=== PATIENT | female | born 1950 | race Caucasian/White ===

== ENCOUNTER → 2024-05-26 13:40 | Outpatient (BNVA) | payer MEDICARE, SELFPAY | PROVIDERS: Family Provider Family Medicine; PCP Family Medicine; Visit Provider Nurse Practitioner Family | DX: M25.871 Other specified joint disorders, right ankle and foot (principal); S90.00XA Contusion of unspecified ankle, initial encounter; X58.XXXA Exposure to other specified factors, initial encounter | CPT/HCPCS: 73610 ==

== ENCOUNTER 2025-07-21 08:36 | Emergency (ER) | payer MEDICARE, SELFPAY ==
--- OUTSIDE RECORDS SUMMARY | 2025-07-21 08:52 | XMS_ITS | Clinical Summary ---
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 Active ISOSORBIDE DINITRATE 30 mg Oral Tab Take 30 mg by mouth 2 times daily. Active CELEBREX 200 mg Oral Cap Take 200 mg by mouth daily. Active LISINOPRIL 40 mg Oral Tab Take 40 mg by mouth 2 times daily. Active VYTORIN 10/40 PO Take by mouth daily. Active HYDROCHLOROTHI AZIDE 25 mg Oral Tab Take 25 mg by mouth 1 time daily as needed. Active PLAVIX 75 mg Oral Tab Take 75 mg by mouth daily. Active ASPIRIN 81 mg Oral Tab Take 81 mg by mouth daily. Active RANITIDINE HCL 300 mg Oral Tab Take 300 mg by mouth 1 time daily as needed for Indigestion. Active NITROSTAT SL Place under tongue 1 time daily as needed. Active TOPROL XL 50 mg Oral Tb24 Take 50 mg by mouth daily. Active HYDROCODONE-AC ETAMINOPHEN 7.5-500 mg Oral Tab Take 1 Tab by mouth 1 time daily as needed for Pain. Active PROMETHAZINE 25 mg Oral Tab Take 25 mg by mouth 1 time daily as needed for Nausea. Active LANTUS SC Inject 20 Units by subcutaneous injection daily. Active diazepam (VALIUM) 10 mg Oral TabIndications :Unspecified dental caries Take 1 Tab by mouth see administration instructions. Take one tablet the night prior to surgery and take one tablet one hour prior to procedure. 2 Tab 0 9 Active chlorhexidine gluconate (PERIDEX) 0.12 % MM MwshIndication s:Unspecified dental caries 15 mL by Mouth/Throat route 2 times daily. 1 Bottle 0 9 Active HYDROCODONE BIT/ACETAMINOP HEN (HYDROCODONE-A CETAMINOPHEN) 5-500 mg Oral TabIndications :Unspecified dental caries Take 1 Tab by mouth every 4 hours as needed for Pain. 30 Tab 0 9 Active Active Problems Problem Noted Date Diagnosed Date Dental caries 01/30/2009 Social History Tobacco Use Types Packs/Day Years Used Date Smoking Tobacco: Never Alcohol Use Standard Drinks/Week Comments No 0 (1 standard drink = 0.6 oz pur e alcohol) Comments No Sex and Gender Information Value Date Recorded Sex Assigned at Not on file Legal Sex Female 7:16 AM [employer] Gender Identity Not on file Sexual Orientation Not on file Last Filed Vital Signs Vital Sign Reading Time Taken Comments Blood Pressure 141/93 01/30/2009 8:53 AM CDT Pulse 76 01/30/2009 8:53 AM CDT Temperature - - Respiratory Rate - - Oxygen Saturation 99% 01/30/2009 8:53 AM CDT Inhaled Oxygen Concentration - - Weight 83 kg (183 lb) 01/30/2009 8:53 AM CDT Height 165.1 cm (5' 5 ) 01/30/2009 8:53 AM CDT Body Mass Index 30.45 01/30/2009 8:53 AM CDT Plan of Treatment Health Maintenance Due Date Last Done Comments DTAP/TDAP/TD VACCINES (1 - Tdap) 1968 COLORECTAL SCREENING 1994 Colorectal Cancer Screening 1994 FIT-DNA Q 3 years 1994 FIT/FOBT Q 1 year 1994 Flex Sig/CT Colonography Q 5 years 1994 PNEUMOCOCCAL VACCINE 50+ YEARS (1 of 1 - PCV) 09/27/19 99 ZOSTER VACCINE (1 of 2) 1999 OSTEOPOROSIS SCREENING 2014 RSV VACCINE (60+ or ) (1 - 1-dose 75+ series) 2024 INFLUENZA VACCINE (#1) 2025 Insurance MEDICARE PART A AND B [facility]
--- NOTE | 2025-07-21 08:53 | XR_ITS ---
WS: [id number] Left wrist, 3 views, 07/21/2025 Clinical Data: Trauma Comparison: None. Findings: There is a comminuted impacted fracture of the distal left radius. Carpal bones are intact. There is soft tissue swelling surrounding the wrist. There is vascular calcification. XR/XR wrist LT min 3V* [id number] Impression: Comminuted impacted fracture distal left radius.
--- NOTE | 2025-07-21 08:53 | CT_ITS ---
WS: [id number] CT CERVICAL TRAUMA TECHNIQUE: Noncontrast CT of the cervical spine with coronal and sagittal reformatted images. CLINICAL INFORMATION: Trauma COMPARISON: None. DLP: 1358.[address] scans at [facility] use at least one of these dose optimization techniques: automated exposure control; mA and/or kV adjustment per patient size (includes targeted exams where dose is matched to clinical indication); or iterative reconstruction. FINDINGS: Straightening of the normal cervical lordosis. Moderate spondylitic changes. Disc narrowing worse at C4-C5 C5-C6 and C6-C7. Mild central canal stenosis C5-6. Normal craniocervical junction. Normal C1-C2 articulation. Dens is normal in appearance. Normal occipital condyles. No high-grade spinal canal narrowing. Normal C1 ring. No evidence of acute fracture or dislocation. Normal prevertebral soft tissues. Vascular calcification. Mastoids air cells are well aerated. CT/CT cervical spin wo con* [id number] IMPRESSION: No evidence of acute fracture or dislocation.
--- NOTE | 2025-07-21 08:54 | CT_ITS ---
WS: [id number] CT HEAD TECHNIQUE: Noncontrast CT of the head obtained from the skullbase to the vertex. CLINICAL INFORMATION: Trauma COMPARISON: None. DLP: 1358.[address] scans at [facility] use at least one of these dose optimization techniques: automated exposure control; mA and/or kV adjustment per patient size (includes targeted exams where dose is matched to clinical indication); or iterative reconstruction. FINDINGS: No evidence of intracranial hemorrhage or mass effect. Ventricular system and basal cisterns are patent. Moderate small vessel changes with moderate parenchymal volume loss. No extra-axial fluid collections. Tiny chronic lacunar infarcts LEFT caudate and posterior limb RIGHT internal capsule. Vascular calcification. Paranasal sinuses and mastoid air cells are well aerated. .Normal visualized soft tissues. CT/CT head wo con* [id number] IMPRESSION: 1. No evidence of intracranial hemorrhage or mass effect. 2. No acute intracranial findings.
[2025-07-21 09:09] VITALS: BP 141/71; PULSE 63; RESP 16; TEMP 36.3; O2SAT 98
--- NOTE | 2025-07-21 09:24 | CT_ITS ---
WS: [id number] CT LUMBAR SPINE TECHNIQUE: Noncontrast CT of the lumbar spine with coronal and sagittal reformatted images. CLINICAL INFORMATION: TRAUMA COMPARISON: None. DLP: 847.[address] scans at [facility] use at least one of these dose optimization techniques: automated exposure control; mA and/or kV adjustment per patient size (includes targeted exams where dose is matched to clinical indication); or iterative reconstruction. FINDINGS: Mild lumbar curve. Slight anterolisthesis L4 on L5. No acute appearing compression fractures. Splenic artery calcification. Cholecystectomy clips. Dense aortic calcification. Osteopenia. Absent LEFT kidney. L3-L4: Moderate facet arthropathy. Mild LEFT foraminal narrowing. L4-L5: Mild annular bulging. Slight narrowing of the subarticular recess bilaterally. Advanced arthropathy. L5-S1: Tiny central protrusion. Advanced facet arthropathy. CT/CT lumbar spine wo con* [id number] IMPRESSION: No acute fractures.
--- NOTE | 2025-07-21 10:00 | W.ED.FALL ---
HPI - Fall General: Chief Complaint: Fall Stated Complaint: Fall- hit back and L wrist Time Seen by Provider: 07/21/25 09:08 History of Present Illness: 74-year-old female presents emergency room she fell hit her back and hurt her left wrist last night when she was trying to help her in bed. She denies hitting her head there is no loss consciousness she is on apixaban. She denies any other injuries. Associated symptoms-after fall: Denies abdominal pain, chest pain or neck pain Related Data Home Medications ?Medication ?Instructions ?Recorded ?Confirmed amlodipine 5 mg tablet 5 mg PO DAILY 05/26/24 05/26/24 apixaban 5 mg tablet (Eliquis) 5 mg PO BID 05/26/24 05/26/24 ezetimibe 10 mg tablet 10 mg PO DAILY 05/26/24 05/26/24 famotidine 20 mg tablet 20 mg PO DAILY 05/26/24 05/26/24 hydralazine 25 mg tablet 25 mg PO TID 05/26/24 05/26/24 isosorbide dinitrate 30 mg tablet 45 mg PO BID 05/26/24 05/26/24 levothyroxine 100 mcg capsule 100 mcg PO DAILY 05/26/24 05/26/24 lisinopril 20 mg tablet 20 mg PO DAILY 05/26/24 05/26/24 metoprolol succinate 50 mg 50 mg PO BID 05/26/24 05/26/24 tablet,extended release 24 hr rosuvastatin 20 mg tablet 20 mg PO DAILY 05/26/24 05/26/24 Previous Rx's ?Medication ?Instructions ?Recorded hydrocodone 5 mg-acetaminophen 325 1 tab PO Q6H PRN pain #10 tabs 07/21/25 mg tablet Allergies Allergy/AdvReac Type Severity Reaction Status Date / Time atorvastatin Allergy Intermediate Unknown Verified 05/26/24 12:56 cefdinir Allergy Intermediate ADR-Nausea Verified 05/26/24 12:56 Iodinated Contrast Media Allergy Unknown Verified 07/21/25 09:14 Review of Systems Const: Denies: fever(s) or chills Card: Denies: chest pain Resp: Denies: dyspnea GI: Denies: abdominal pain : Denies: dysuria, urinary frequency or urinary urgency Musc: Denies: neck pain or back pain Skin/Breast: Denies: rash PFSH ED PFSH: Social History Smoking and tobacco/nicotine status: never used tobacco/nicotine Physical Exam Const: GENERAL APPEARANCE: cooperative ORIENTATION/CONSCIOUSNESS: Yes awake, Yes oriented to person, Yes oriented to place and Yes oriented to time HENMT: COMMON NORMALS: normocephalic, atraumatic and hearing grossly normal bilaterally HEAD & SCALP: normocephalic and atraumatic Resp: COMMON NORMALS: normal respiratory effort, No retractions, No use of accessory muscles and clear to auscultation bilaterally AUSCULTATION: clear to auscultation bilaterally Cardio: COMMON NORMALS: regular rate, regular rhythm and No murmurs present (Cardio) RATE: regular rate RHYTHM: regular rhythm GI: COMMON NORMALS: Soft to palpation and No hepatosplenomegaly present AUSCULTATION: Yes normoactive bowel sounds PALPATION: Yes Soft to palpation, No Tenderness to palpation present (GI), No Guarding due to palpation present (GI) and Yes No hepatosplenomegaly present Extremity: COMMON NORMALS: normal to inspection, capillary refill normal, no clubbing, cyanosis or edema, no calf tenderness and no pedal edema Neuro: SENSORIUM/ORIENTATION: Yes oriented to person, Yes oriented to place and Yes oriented to time Skin: COMMON NORMALS: no rashes or lesions noted GENERAL SKIN EXAM: no rashes or lesions noted Course Vital Signs: Vital signs: Vital Signs Temperature 97.4 F L 07/21/25 09:09 Pulse Rate 67 07/21/25 10:56 Respiratory Rate 16 07/21/25 09:09 Blood Pressure 141/71 07/21/25 10:56 Pulse Oximetry 98 07/21/25 10:56 Oxygen Delivery Me thod Room Air 07/21/25 09:09 MDM - Fall Medical Decision Making CT of her lumbar spine and head CT are unremarkable no acute findings. Impacted comminuted left distal radius fracture will refer to orthopedics Medical Records I reviewed the patient's medical records. Lab Data I reviewed the patient's lab results. Radiology Impressions Cervical Spine CT 07/21/25 08:53 IMPRESSION: No evidence of acute fracture or dislocation. Wrist X-Ray 07/21/25 08:53 Impression: Comminuted impacted fracture distal left radius. Head CT 07/21/25 08:54 IMPRESSION: 1. No evidence of intracranial hemorrhage or mass effect. 2. No acute intracranial findings. Lumbar Spine CT 07/21/25 09:24 IMPRESSION: No acute fractures. All radiology interpretation(s) finalized by discharge Discharge Plan Discharge Patient Disposition: Home Clinical Impression: Fracture of wrist Qualifiers: Encounter type: initial encounter Fracture type: closed Laterality: left Qualified Code(s): S62.102A - Fracture of unspecified carpal bone, left wrist, initial encounter for closed fracture Fall Qualifiers: Encounter type: initial encounter Qualified Code(s): W19.XXXA - Unspecified fall, initial encounter Condition: Stable Prescriptions: New hydrocodone-acetaminophen 5-325 mg tablet 1 tab PO Q6H PRN (Reason: pain) Qty: 10 0RF No Action levothyroxine 100 mcg capsule 100 mcg PO DAILY isosorbide dinitrate 30 mg tablet 45 mg PO BID Rx Instructions: allow nitrate-free interval of 12-14 hrs per 24-hr period lisinopril 20 mg tablet 20 mg PO DAILY rosuvastatin 20 mg tablet 20 mg PO DAILY amlodipine 5 mg tablet 5 mg PO DAILY metoprolol succinate 50 mg tablet extended release 24 hr 50 mg PO BID famotidine 20 mg tablet 20 mg PO DAILY hydralazine 25 mg tablet 25 mg PO TID ezetimibe 10 mg tablet 10 mg PO DAILY Eliquis 5 mg tablet 5 mg PO BID Discharge Orders: Discharge ED (Routine); Ordered 07/21/25 Ordered By: Landen Thornton Referrals: Gloria Mcintosh MD [Primary Care Provider, Family Practice] Discharge Diet: Usual diet Discharge Activity: Limit activity as instructed Patient Instructions: Opioid Safety, Pain Management, Patient Portal & Charlene Instructions Activity Restrictions/Additional Instructions: Thank you for choosing [facility] for your healthcare needs today. It is very important that you follow up as instructed or that you return to the Emergency Department should you have concerns or if your condition changes or worsens in any way. Emergency department visits are focused on emergent conditions, in some cases you may require further evaluation on an outpatient basis. You were seen in the emergency room after a fall. You have complained of back pain and left wrist pain CT of your head and back and neck were normal. X-ray of your left wrist shows a fracture. You will need to follow-up with orthopedics for this. You are placed in a splint and given pain medications and a sling. You can elevate and ice to help with discomfort as well. Case management make arrangements for you to follow-up with one of the orthopedist. (Please note that included in your discharge packet is information concerning opioid safety and pain management. This information is given to all patients were discharged from the ER regardless of their discharge diagnosis or the medicines they usually take or are prescribed.) Print Language: Croatian Coding Level of Care Code ED Blueprint Maker for James Mccabe
[2025-07-21] MEDS: HYDROcodone-acetaminophen 5-325 mg Tablet 1 TAB PO (10:45)
[2025-07-21 10:56] VITALS: BP 141/71; PULSE 67; O2SAT 98
== END 2025-07-21 11:03 | disposition home or self-care (01) ==
PROVIDERS: Emergency Provider Family Medicine; Family Provider Family Medicine; PCP Family Medicine
DX: S62.102A Fracture of unspecified carpal bone, left wrist, initial encounter for closed fracture (principal); W19.XXXA Unspecified fall, initial encounter; Z79.01 Long term (current) use of anticoagulants
CPT/HCPCS: 70450; 72125; 72131; 73110; 99284; J9999